=== PATIENT | female | born 1950 | race Caucasian/White ===

== ENCOUNTER 2022-05-13 12:46 | Emergency (ER) | payer MEDICARE, BC, MEDICAID, SELFPAY ==
[2022-05-13 13:00] VITALS: BP 134/70
[2022-05-13 13:05] VITALS: BP 134/70; PULSE 82; TEMP 36.4; O2SAT 97; BMI 31.5
[2022-05-13 13:20] VITALS: BP 112/68; PULSE 77; O2SAT 96
[2022-05-13 13:40] VITALS: BP 104/61; PULSE 82; O2SAT 94
--- NOTE | 2022-05-13 13:45 | ED_ITS ---
HPI - Abdominal Pain General Chief Complaint: Abdominal Pain Stated Complaint: ACUTE ABODMINAL SWELLING Time Seen by Provider: 05/13/22 13:17 Source: patient, RN notes reviewed and other Mode of arrival: ambulatory Limitations: no limitations History of Present Illness HPI narrative: 72-year-old woman presenting to the emergency department with concern of an abdominal fullness. She was otherwise in usual state of health. This morning when getting dressed putting on her jeans felt like things were pulling a little bit maybe increased tension in her abdomen. She switched over to shorts then. When out to eat with a friend who accompanies her here today and while eating noted was getting bigger and bigger in the abdomen. She went to the bathroom and tried to have a bowel movement the would not consider herself constipated and did not produce much of anything. She was worried noting that she ?did not want something to explode and so presents to the emergency department. This seemed to be getting bigger and bigger again is if was going to explode. Admittedly now feels normal. She did not have any pulsatile sensation to the swelling. Not feeling lightheaded or particularly nauseated. There was no complaint of pain. She does note a history of abdominal surgery for colon cancer years ago. Related Data Home Medications Medication Instructions Recorded Confirmed levetiracetam 500 mg tablet mg PO 05/13/22 Allergies Allergy/AdvReac Type Severity Reaction Status Date / Time felbamate Allergy Unknown Verified 05/13/22 13:11 Sulfa (Sulfonamide Allergy Unknown Verified 05/13/22 13:11 Antibiotics) Review of Systems Status of ROS Reports: 6 or more systems reviewed and unremarkable except as noted in History and below [facility] Medical History Colon cancer (~04/2020) Surgical History History of cancer surgery (~04/2020) Hx of cholecystectomy Social History Smoking Status: Never smoker Do you use any of these nicotine containing products: None Second hand tobacco smoke exposure: No How often do you have a drink containing alcohol: never How often do you have six or more drinks on one occasion: Never AUDIT-C Alcohol total score: 0 Non-prescribed substance use: denies use Exam Narrative: Exam Narrative: Pleasant. NAD. Lying with upper body only slightly elevated in the bed. Breathing easily. HEENT-WNL. Lungs are clear with equal expansion excursion. Cardiovascular RRR no murmurs rubs or gallops Abdomen overweight soft. Normoactive bowel sounds. Palpation of the abdomen does not elicit pain but in the mid right abdomen just right of large vertical scar is a palm sized ?squishy? swelling. This reduces very easily. I ask her to do an abdominal crunch. Intact abdominal wall is palpated then this swelling recurs and once again easily reducible with decreased abdominal pressure. No other masses appreciated Const: Vital Signs, click to edit/add: Vital Signs - 24 hr 05/13/22 13:05 Temperature 97.5 F L Pulse Rate [Left P ulse Oximeter] 82 Blood Pressure [Ri ght Upper Arm] 134/70 Pulse Oximetry 97 Documenting provider has reviewed patient's vital signs: yes Course Course Hospital Course: Interview and exam as above again prior to departure she noticed recurrence of this swelling/hernia once got up to leave. attempted self-reduction unsuccessfully. nursing came to get me. I returned Ms. Esparza to the bed emphasizing need to be flat. legs up. head down on pillow/bed. palpating with ms. esparza, hernia is definitely present. reduces again easily. wall defect more apparent right of midline (can't say doesn't connect with midline scar) and i point this out to ms. Esparza. Vital Signs Vital signs: Initial Vital Signs Blood Pressure 134/70 05/13/22 13:00 Blood Pressure Mean 91 05/13/22 13:00 Blood Pressure Position Supine 05/13/22 13:00 Vital Signs Blood Pressure 134/70 05/13/22 13:00 Temperature 97.5 F L 05/13/22 13:05 Pulse Rate 82 05/13/22 13:40 Blood Pressure 104/61 05/13/22 13:40 Pulse Oximetry 94 05/13/22 13:40 MDM - Abdominal Pain MDM Narrative Medical decision making narrative: We did discuss potential imaging though she would like to defer that at this time. I do not think that is inappropriate. She is asymptomatic and this apparent hernia has been reduced. Presumably this is related to incision, incisional hernia? From prior surgery. Medical Records Attestation: I reviewed the patient's medical records. Discharge Plan Discharge Clinical Impression: Abdominal wall hernia Patient Disposition: Home, Self-Care Condition: Improved Instructions: Incisional Hernia (DC) Additional Instructions: As discussed reduce this if this recurs again. Lying flat on your back knees bent feet flat on the floor gently massage this back into place. If however you start to have increasing pain, can not get it back in, increasing redness/tension, associated vomiting, please return to the emergency department for assistance. You might want to schedule a follow-up with General surgery for a 2nd opinion, to make further plans for treatment Prescriptions: No Action levetiracetam 500 mg tablet PO 0RF Label Comments: TAKE TWO TABLETS BY MOUTH EVERY MORNING, ONE TABLET AT NOON, AND TWO TABLETS EVERY EVENING. Stand Alone Forms: [employer] Info Instructions
== END 2022-05-13 14:21 | disposition home or self-care (01) ==
LOC: ED 14:03
PROVIDERS: Emergency Provider Family Medicine; PCP Family Medicine
DX: K46.9 Unspecified abdominal hernia without obstruction or gangrene (principal)
CPT/HCPCS: 99282; 99284

== ENCOUNTER 2022-06-18 14:46 | Emergency (ER) | payer MEDICARE, BC, MEDICAID, SELFPAY ==
[2022-06-18 15:24] VITALS: BP 141/73; PULSE 76; RESP 20; TEMP 35.9; O2SAT 98; BMI 30.6
--- NOTE | 2022-06-18 15:56 | ED.GENADULT ---
HPI - General Adult General Time Seen by Provider: 15:56 Date Seen: 06/18/22 Chief complaint: Unspecified Complaint, Adult Stated complaint: Tightening in lower legs Time Seen by Provider: 06/18/22 15:09 Source: patient Mode of arrival: ambulatory Limitations: no limitations History of Present Illness HPI narrative: Patient is a 72 year white female who has had a seizure disorder she is on Lamictal, she sees Dr. Gipson, she has had some tightening feeling and ?bouncing? feeling in her legs. Dr. Gipson is felt that this might be a peripheral neuropathy, and she presents to ED for assessment, she has no swelling or redness or rashes in her legs. She denies diabetes. She has had colon cancer and has had a recent hernia noted. No fevers chills weight loss, no back pain, no radicular type symptoms. Patient has been ambulating without difficulty, typically she wakes up the morning and feels pretty good. No restless leg symptoms at night Related Data Home Medications Medication Instructions Recorded Confirmed levetiracetam 500 mg tablet mg PO 05/13/22 Previous Rx's Medication Instructions Recorded cyclobenzaprine 10 mg tablet 10 mg PO QAM #7 tabs 06/18/22 Allergies Allergy/AdvReac Type Severity Reaction Status Date / Time felbamate Allergy Unknown Verified 05/13/22 13:11 Sulfa (Sulfonamide Allergy Unknown Verified 05/13/22 13:11 Antibiotics) [facility] Medical History Colon cancer (~04/2020) Surgical History History of cancer surgery (~04/2020) Hx of cholecystectomy Social History Smoking Status: Never smoker Do you use any of these nicotine containing products: None Second hand tobacco smoke exposure: No How often do you have a drink containing alcohol: never How often do you have six or more drinks on one occasion: Never AUDIT-C Alcohol total score: 0 Non-prescribed substance use: denies use Exam Narrative: Exam Narrative: Objective: Patient's vital signs unremarkable Alert or x3 Ambulatory thought difficulty Lower extremities show no redness warmth erythema or swelling of her legs negative straight leg raise bilaterally, normal sensation, good peripheral perfusion in lower extremities. Const: Vital Signs, click to edit/add: Vital Signs - 24 hr 06/18/22 15:24 Temperature 96.6 F L Pulse Rate [Right Pulse Oximeter] 76 Respiratory Rate 20 Blood Pressure [Ri ght Upper Arm] 141/73 H Pulse Oximetry 98 Oxygen Delivery Me thod Room Air Course Vital Signs Vital signs: Initial Vital Signs Temperature 96.6 F L 06/18/22 15:24 Temperature Source Temporal Artery Scan 06/18/22 15:24 Pulse Rate 76 06/18/22 15:24 Respiratory Rate 20 06/18/22 15:24 Blood Pressure 141/73 H 06/18/22 15:24 Blood Pressure Mean 95 06/18/22 15:24 Blood Pressure Position Sitting 06/18/22 15:24 Pulse Oximetry 98 06/18/22 15:24 Oxygen Delivery Method 06/18/22 15:24 Vital Signs Temperature 96.6 F L 06/18/22 15:24 Pulse Rate 76 06/18/22 15:24 Respiratory Rate 20 06/18/22 15:24 Blood Pressure 141/73 H 06/18/22 15:24 Pulse Oximetry 98 06/18/22 15:24 Oxygen Delivery Method 06/18/22 15:24 Temperature 96.6 F L 06/18/22 15:24 Pulse Rate 76 06/18/22 15:24 Respiratory Rate 20 06/18/22 15:24 Blood Pressure 141/73 H 06/18/22 15:24 Pulse Oximetry 98 06/18/22 15:24 Oxygen Delivery Method 06/18/22 15:24 Medical Decision Making [facility] Narrative Medical decision making narrative: 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 Cautioned about sedative effect. She can follow-up with Dr. Gipson about a week and see if this has any effect, pref preps neurology referral if not improved approved. Discharge Plan Discharge Clinical Impression: Chronic leg pain Patient Disposition: Home, Self-Care Condition: Stable Additional Instructions: Good stretching, walking is able, muscle relaxant once a day to see if there is some benefit, follow-up with Dr. Gipson in the next week, return to ED as needed Activity Level: Activity as Tolerated Discharge Diet: Regular Prescriptions: New cyclobenzaprine 10 mg tablet 10 mg PO QAM Qty: 7 0RF No Action levetiracetam 500 mg tablet PO Label Comments: TAKE TWO TABLETS BY MOUTH EVERY MORNING, ONE TABLET AT NOON, AND TWO TABLETS EVERY EVENING. Follow Up/Referrals: Ayesha Gipson MD [Primary Care Provider] - Stand Alone Forms: [employer] Info Instructions
== END 2022-06-18 16:44 | disposition home or self-care (01) ==
PROVIDERS: Emergency Provider Family Medicine; PCP Family Medicine
DX: R68.89 Other general symptoms and signs (principal)
CPT/HCPCS: 99283

== ENCOUNTER 2022-07-07 10:00 | Outpatient (RCR) | payer MEDICARE, BC, MEDICAID, SELFPAY | END 2022-07-07 13:06 | disposition home or self-care (01) | PROVIDERS: PCP Family Medicine; Visit Provider Family Medicine | DX: E11.42 Type 2 diabetes mellitus with diabetic polyneuropathy (principal) | CPT/HCPCS: 97110; 97112; 97162 ==

== ENCOUNTER 2022-10-25 10:15 | Outpatient (RCR) | payer MEDICARE, BC, MEDICAID, SELFPAY ==
[2022-07-13 10:56] LABS: Albumin* 4.3 g/dL (3.3-5.0); Basophils Absolute Auto 0.03 K/uL (0.00-0.30); Basophils Percent Auto 0.4 % (0.0-3.0); Chloride* 103 mmol/L (96-114); Eosinophils Percent Auto 1.2 % (0.0-7.0); Hematocrit 43.2 % (33.0-51.0); Hemoglobin* 14.1 gm/dL (12.0-16.0); Immature Granulocytes Abs Auto 0.01 K/uL (0.00-0.30); Lymphocytes Percent Auto 18.5 % (20-44); Mean Corpuscular HGB Conc 33 gm/dL (32-36); Mean Corpuscular Hemoglobin 29 pg (26-34); Mean Corpuscular Volume 90 fL (80-100); Monocytes Percent Auto 14.4 % (0.0-11.0); Neutrophils Absolute Auto 5.39 K/uL (1.7-7.0); Neutrophils Percent Auto 65.4 % (42.0-72.0); Platelet Count* 379 K/uL (140-440); RDW Coefficient of Variation % 13.1 % (11.5-15.5); Red Blood Count 4.79 m/uL (4.00-5.20); Sodium* 139 mmol/L (135-149); White Blood Count* 8.25 K/uL (4.50-11.00)
[2022-07-13 10:57] LABS: Potassium* 4.6 mmol/L (3.6-5.1)
[2022-07-13 10:59] LABS: Alkaline Phosphatase* 85 U/L (40-150); Aspartate Amino Transferase* 28 U/L (12-35); Bilirubin Total* 0.7 mg/dL (0.1-1.5); Blood Urea Nitrogen* 11 mg/dL (7-30); Carbon Dioxide* 29 mmol/L (20-32); Creatinine* 0.6 mg/dL (0.5-1.5); Estimated Glomerular Filt Rate 97 ml/min; Total Protein* 6.7 g/dL (6.0-8.3)
[2022-07-13 11:00] LABS: Alanine Aminotransferase* 23 U/L (4-35); Glucose* 92 mg/dL (60-115)
[2022-07-13 11:01] LABS: Slide Review Reflex No
[2022-07-14 16:31] LABS: Carcinoembryonic Antigen 2.1 ng/mL
--- NOTE | 2022-09-07 09:53 | URNOTE ---
Request received for authorization for Palonosetron (J2469) and Oxaliplatin (J9263). Prior authorization is not required as services are based on medical necessity and follow Medicare guidelines.
--- NOTE | 2022-09-07 12:33 | ONC.NURNOTE ---
Clinical Trial Coordinator checked in with Trini today about her plan to procede with chemotherapy Trini states that her sister is strongly encouraging her to start chemotherapy Trini is concerned about the chemotherapy side effects and transportation and has not made a decision about starting treatment Trini asked for clarification about possible side effects: the following were mentioned over the phone with reassurance that all will be reviewed in person prior to start of treatment cold sensitivity sensation changes in hands and feet- may be chronic changes fatigue loose stools reviewed treatment schedule and need for Q 3week lab and provider and treatment appts
--- NOTE | 2022-09-07 12:48 | ONC.NURNOTE ---
Trini-requested that this database report writer speak with her sister to provide the same information as discussed with Trini Guillen called immediatley after database report writer completed call with Trini Duplicating Machine Operator reviewed treament schedule- need for ride Q3wk oral and IV chemotherapy- including need for port placement and oral meds to be arranged from a specialty pharmacy provider appts with lab and treatment every 3 weeks X 8 treatments (6mths) treatment does have side effects which can be managed Trini will call back with her decision No future appts yet made for port pending capecitabine will need to be submitted to specialty pharmacy
--- NOTE | 2022-09-12 11:36 | ONC.NURNOTE ---
Radha from [facility] called and said that patient was called to set up the port placement and patient said I'm not going that way. Provider to be notified when she is in this week. Cat Scan Technologist plans to call patient later this week.
--- NOTE | 2022-09-14 12:57 | ONC.NURNOTE ---
Patient has decided not to pursue chemotherapy.
== END 2023-01-09 23:59 | disposition home or self-care (01) ==
LOC: CCIC 10:15
PROVIDERS: PCP Family Medicine; Visit Provider Internal Medicine Hematology & Oncology
DX: C18.9 Malignant neoplasm of colon, unspecified (principal)
CPT/HCPCS: 36415; 80053; 82378; 85025; 99212; 99213; 99215

== ENCOUNTER 2023-02-20 09:58 | Outpatient (CLI) | payer MEDICARE, BC, MEDICAID, SELFPAY ==
--- NOTE | 2023-02-20 10:15 | CRLHL7_ITS ---
For Patients: As a result of the Century Cures Act, medical imaging exams and procedure reports are released immediately into your electronic medical record. You may view this report before your referring provider. If you have questions, please contact your health care provider. INDICATION : Right thyroid nodule. TECHNIQUE : Ultrasound-guided fine needle aspiration of thyroid nodule. Comparison : CT-PET scan 07/21/2022 FINDINGS : PROCEDURE: After the informed consent and time-out, multiple fine needle aspirations were obtained from the thyroid nodule. Fine needle performed. 25 gauge needles were used. Lidocaine was used for local anesthesia. The preliminary cytology was adequate for interpretation. Real-time imaging was used for guidance and needle placement. Post imaging ultrasound demonstrates no immediate complication. IMPRESSION : Successful fine needle aspiration of right thyroid nodule. Dictated by Sanjay Vazquez MD @ 02/20/2023 11:48:41 AM (Electronically Signed)
== END 2023-02-20 09:59 | disposition home or self-care (01) ==
LOC: US 10:01
PROVIDERS: PCP Family Medicine; Visit Provider Family Medicine
DX: E04.1 Nontoxic single thyroid nodule (principal)
CPT/HCPCS: 10005

== ENCOUNTER 2025-03-11 20:58 | Outpatient (CLI) | payer MEDICARE, BC, MEDICAID, SELFPAY | END 2025-03-11 20:59 | disposition home or self-care (01) | LOC: AMB 03-13 10:18 | PROVIDERS: PCP Family Medicine; Visit Provider Student in an Organized Health Care Education/Training Program | DX: R41.82 Altered mental status, unspecified (principal) | CPT/HCPCS: A0998 ==

== ENCOUNTER 2025-08-28 15:25 | Outpatient (CLI) | payer MEDICARE, BC, SELFPAY ==
--- NOTE | 2025-08-28 15:30 | CRLHL7_ITS ---
For Patients: As a result of the Century Cures Act, medical imaging exams and procedure reports are released immediately into your electronic medical record. You may view this report before your referring provider. If you have questions, please contact your health care provider. INDICATION: Complex partial seizure disorder. TECHNIQUE: Multiplanar MRI of the brain was performed with and without the administration of intravenous contrast. IV contrast: 20 mL Dotarem. COMPARISON: None. FINDINGS: No evidence of acute infarction or intracranial hemorrhage. No edema of mass effect. True angled coronal T2 and FLAIR images of the hippocampi were not obtained which does limit evaluation. There appears to be decreased volume and increased T2 signal in the left hippocampus as visualized, suggestive of mesial temporal sclerosis. No abnormal parenchymal or leptomeningeal enhancement. There are a few scattered T2/FLAIR hyperintensities in the subcortical and periventricular white matter. While nonspecific, these can be seen as sequela of chronic small vessel ischemia. The ventricles and sulci are prominent and proportionate reflecting mild diffuse brain volume loss. No significant paranasal sinus mucosal thickening/secretions. No evidence of acute orbital pathology. No significant mastoid effusion. No suspicious marrow signal abnormality. Scattered presumed epidermal inclusion cysts in visualized scalp. A few presumed Tornwaldt cysts in the visualized nasopharynx measuring up to 1.2 cm. IMPRESSION: 1. No acute intracranial abnormality. 2. 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 3. Mild nonspecific white matter change that can be seen as sequela of chronic small vessel ischemia. Dictated by Travis Solano MD @ 08/30/2025 7:03:34 AM (Electronically Signed)
== END 2025-08-28 15:26 | disposition home or self-care (01) ==
PROVIDERS: PCP Family Medicine; Visit Provider Nurse Practitioner
DX: G40.209 Localization-related (focal) (partial) symptomatic epilepsy and epileptic syndromes with complex partial seizures, not intractable, without status epilepticus (principal)
CPT/HCPCS: 70553; A9575